=== PATIENT | male | born 1995 | race African-American/Black ===

== ENCOUNTER 2019-08-10 14:34 | Emergency (ER) | payer OTHER ==
[2019-08-10 15:01] VITALS: BP 111/69; PULSE 78; RESP 18; TEMP 98
[2019-08-10] MEDS ORDERED: LIDOCAINE 1% INJ 10MG/ML (20 ML MDV) SQ ONE (15:52)
[2019-08-10] MEDS ORDERED: DIPH,PERTUS(ACELL)TETVAC-LF 0.5 ML VIAL IM ONE (15:53)
--- NOTE | 2019-08-10 16:11 | XR ---
EXAMINATION TYPE: XR hand complete RT DATE OF EXAM: 08/10/2019 CLINICAL HISTORY: pain TECHNIQUE: Frontal, lateral and oblique images of the right hand are obtained. COMPARISON: None. FINDINGS: There is no acute fracture/dislocation evident. Lucent lesion noted subungual tuft region of the right third digit is nonspecific. The joint spaces appear within normal limits. The overlying soft tissue appears unremarkable. IMPRESSION: There is no acute fracture or dislocation ICD 10 NO FRACTURE, INITIAL EVALUATION
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
== END 2019-08-10 17:40 | disposition home or self-care (01) ==
LOC: EC 14:34
DX: S61.411A Laceration without foreign body of right hand, initial encounter (principal); S61.210A Laceration without foreign body of right index finger without damage to nail, initial encounter; Z23 Encounter for immunization; W22.03XA Walked into furniture, initial encounter; Y93.89 Activity, other specified
CPT/HCPCS: 73130; 90715; 90471; 12001; 99283; J2001